=== PATIENT | male | born 1965 | race Caucasian/White ===

== ENCOUNTER → 2017-07-13 | Outpatient (CLI) | payer OTHER ==
--- NOTE | 2017-07-13 09:42 | MR ---
EXAMINATION TYPE: MR knee LT wo con DATE OF EXAM: 07/13/2017 COMPARISON: NONE HISTORY: Left knee pain TECHNIQUE: Multiplanar, multisequence imaging of the left knee is performed without IV contrast. FINDINGS: MEDIAL MENISCUS: Anterior and posterior horns are intact without tear. LATERAL MENISCUS: Anterior and posterior horns are intact without tear. CRUCIATE LIGAMENTS: Anterior cruciate ligament is intact. The posterior cruciate ligament appears to be thickened with a large area of intrinsic abnormal signal compatible with partial chronic tear. COLLATERAL LIGAMENTS: The medial collateral ligament and lateral collateral ligament complex are inta ct and unremarkable. EXTENSOR MECHANISM: Visualized quadriceps and patellar tendons are intact. EFFUSION: There is a moderate-sized suprapatellar bursal fluid collection. There is be a linear band of low signal extending through the collection which may represent plica syndrome. POPLITEAL CYST: There is a multiseptated cystic mass in the posterior margin of the knee joint in th e popliteal fossa measuring approximately 1.7 x 2 x 3.6 cm TRICOMPARTMENT SPACES: Mild narrowing of the medial compartment of the knee joint. Grade II chondroma lacia of the patellar cartilage noted. There also appears to be grade II chondromalacia involving the lateral tibial articular cartilage. BONE MARROW SIGNAL: No focal abnormal marrow signal is appreciated. IMPRESSION: 1. Marked thickening and abnormal increased signal within the intrasubstance portion of the PCL princess tible with chronic partial tear. ACL intact. 2. Multiseptated popliteal fossa cyst measuring 1.7 x 2 x 3.6 cm 3. Mild osteoarthritis medial compartment knee joint with findings and compatible with grade II chond romalacia involving the tricompartment space as discussed above. #4 there is a signal within the post erior horn medial meniscus along its periphery felt to be most typical of myxoid degeneration. Subtle linear tear suspected. 4. Moderate-sized suprapatellar bursal fluid with a linear band of low signal which may represent pli ca syndrome. Correlate clinically.
== END | disposition home or self-care (01) ==
LOC: RADMRIMAIN 08:44
PROVIDERS: ATTEND Pediatrics
DX: M17.12 Unilateral primary osteoarthritis, left knee (principal); M71.22 Synovial cyst of popliteal space [Baker], left knee; R93.7 Abnormal findings on diagnostic imaging of other parts of musculoskeletal system

== ENCOUNTER → 2018-12-26 | Outpatient (CLI) | payer OTHER | END | disposition home or self-care (01) | LOC: RADUSWWP 12:21 | PROVIDERS: ATTEND Family Medicine | DX: M79.604 Pain in right leg (principal) | CPT/HCPCS: 93923 ==

== ENCOUNTER → 2019-01-02 | Outpatient (CLI) | payer OTHER ==
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
== END | disposition home or self-care (01) ==
LOC: RADMRIMAIN 15:47
PROVIDERS: ATTEND Psychiatry & Neurology Neurology
DX: M48.061 Spinal stenosis, lumbar region without neurogenic claudication (principal); M51.26 Other intervertebral disc displacement, lumbar region; M51.27 Other intervertebral disc displacement, lumbosacral region; M51.36 Other intervertebral disc degeneration, lumbar region; M46.96 Unspecified inflammatory spondylopathy, lumbar region; M24.28 Disorder of ligament, vertebrae
CPT/HCPCS: 72148

== ENCOUNTER → 2020-03-13 | Outpatient (CLI) | payer OTHER ==
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
== END | disposition home or self-care (01) ==
LOC: RADCTMAIN 17:51
PROVIDERS: ATTEND Family Medicine
DX: G31.89 Other specified degenerative diseases of nervous system (principal); I67.82 Cerebral ischemia; I63.89 Other cerebral infarction
CPT/HCPCS: 70450

== ENCOUNTER → 2023-01-05 | Outpatient (CLI) | payer MEDICARE ==
--- NOTE | 2023-01-05 15:40 | XR ---
EXAMINATION TYPE: XR knee complete LT DATE OF EXAM: 01/05/2023 COMPARISON: 06/14/2013 HISTORY: Pain TECHNIQUE: Three views are submitted. FINDINGS: Joint spaces are preserved. Osseous structures are intact. No acute fracture seen. Vascular calcif ications noted. There is a moderate-sized suprapatellar bursal fluid collection. Mild osteopenia. IMPRESSION: 1. Moderate to large-sized suprapatellar bursal fluid collection. This occasionally be associated wit h internal derangement of knee. If there has been recent trauma consider MRI.
== END | disposition home or self-care (01) ==
LOC: RADXRYALE 15:25
PROVIDERS: ATTEND Physician Assistant
DX: M25.562 Pain in left knee (principal)

== ENCOUNTER → 2024-01-10 | Outpatient (CLI) | payer MEDICARE ==
--- NOTE | 2024-02-06 13:19 | US ---
Site ID [facility] Patient Martin Mazariegos J ID [id number] Age/Gender: 58Y, M Order # N/A Procedure US arterial LE single level Date 01/10/2024 9:58:00 AM EXAMINATION TYPE: US arterial LE single level DATE OF EXAM: 01/31/2024 1:38 AM CLINICAL INDICATION: Male, 58 year old with history of claudication History of: Smoker: Previous Hypertension: Yes Diabetic: No Hyperlipidemia: Yes TIA/CVA: NA Previous Vascular Surgery: Yes CAD: NA ND: Yes Vascular Ulcers: None Claudication: Both Gangrene: NA Doppler Waveforms: Right: Monophasic Left: Monophasic Right Brachial Pressure: 129 Left Brachial Pressure: 125 Ankle-Brachial Indices: Right: 0.47 Left: 0.28 (Vessel hardening > 1.4; Normal 0.9 - 1.4, Moderate 0.7 - 0.9, Severe 0.5-0.7) IMPRESSION: Severe bilateral peripheral arterial vascular disease.
== END | disposition home or self-care (01) ==
LOC: RADUSWWP 12:00
PROVIDERS: ATTEND Thoracic Surgery (Cardiothoracic Vascular Surgery)
DX: I73.9 Peripheral vascular disease, unspecified (principal)
CPT/HCPCS: 93922

== ENCOUNTER → 2024-04-29 | Day surgery (SDC) | payer MEDICARE ==
[2024-04-26 12:09] VITALS: BMI 24.3
[~2024-04-29] MED LIST: ALPRAZolam 0.25 MG TAB PO PRN; HEPARIN SODIUM,PORCINE (1 ML) 2,500 UNIT in SODIUM CHLORIDE 0.9% 250 ML IRRIGATION PRN; HEPARIN SODIUM,PORCINE 10,000 UNIT in SODIUM CHLORIDE 0.9% 1,000 ML IRRIGATION PRN; ZOLPIDEM 5 MG TAB PO PRN
[2024-04-29 07:06] VITALS: TEMP 98.1
[2024-04-29] MEDS: EMPTY BAG 1 BAG with SODIUM CHLORIDE 0.9% 1,000 ML IV SCH (07:09)
[2024-04-29] MEDS: IV FLUID CONTINUATION 1,000 ML IV ONE (07:10)
[2024-04-29 07:21] LABS: Basophils # (A) 0.1 k/uL (0-0.2); Basophils % (A) 1 %; Eosinophils # (A) 0.4 k/uL (0-0.7); Eosinophils % (A) 4 %; HCT 43.4 % (39.0-53.0); HGB 13.8 gm/dL (13.0-17.5); Lymphocytes # (A) 2.4 k/uL (1.0-4.8); Lymphocytes % (A) 26 %; MCH 30.3 pg (25.0-35.0); MCHC 31.7 g/dL (31.0-37.0); MCV 95.4 fL (80.0-100.0); Mean Platelet Volume 6.5; Monocytes # (A) 0.5 k/uL (0-1.0); Monocytes % (A) 5 %; Neutrophils # (A) 5.7 k/uL (1.3-7.7); Neutrophils % (A) 62 %; Platelet Count 408 k/uL (150-450); RBC 4.55 m/uL (4.30-5.90); RDW 13.9 % (11.5-15.5); WBC 9.1 k/uL (3.8-10.6)
[2024-04-29 07:39] LABS: African American GFR (CKD) >90 (>60 ml/min/1.73 sqM); Anion Gap 7 mmol/L; Blood Urea Nitrogen 21 mg/dL (9-20); Calcium 9.4 mg/dL (8.4-10.2); Carbon Dioxide 26 mmol/L (22-30); Chloride 106 mmol/L (98-107); Glucose 102 mg/dL (74-99); Non-African American GFR(CKD) >90 (>60 ml/min/1.73 sqM); Potassium 3.9 mmol/L (3.5-5.1); Sodium 139 mmol/L (137-145)
[2024-04-29] MEDS: MIDAZOLAM 2 MG/2 ML VIAL IVP ONE (09:20)
[2024-04-29] MEDS: fentaNYL (PF) 50 MCG/ML 2 ML AMP IVP ONE (09:20)
[2024-04-29] MEDS: LIDOCAINE 1% INJ 10MG/ML (20 ML MDV) SQ ONE ×2 (09:20→09:22)
[2024-04-29] MEDS: IOPAMIDOL-250 100ML BTL INTRAARTER ONE ×2 (09:43→09:44)
--- NOTE | 2024-04-29 10:07 | IR ---
EXAMINATION TYPE: IR angio abdominal w runoff DATE OF EXAM: 04/29/2024 COMPARISON: NONE CLINICAL INDICATION: Male, 58 years old with history of bilateral leg pain, 1.3 min fluoro, 33.5Gycm2 ; Fluoroscopy was provided to the referring clinician. [facility], , 04/29/2024 10:05 AM
--- NOTE | 2024-04-29 10:12 | P.OP ---
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 2: Severe lifestyle limiting claudication bordering on ischemic rest pain. Postoperative Diagnosis: Same +2.0 cm right common iliac artery aneurysm Procedure(s) Performed: 1: Ultrasound-guided cannulation right femoral artery. 2: Abdominal aortogram with bilateral pelvic, femoral, popliteal and tibial artery runoff. Implants: None. Anesthesia: MAC (50 mcg of fentanyl and 2 mg of Versed administered intravenously.), local (1% Xylocaine.) Surgeon: Migel Dewitt Estimated Blood Loss (ml): 10 Urine output (ml): 0 Pathology: none sent Condition: stable Disposition: no change Indications for Procedure: Patient is a 58-year-old male who had presented to the office complaining of severe lifestyle limiting claudication and occasionally ischemic rest pain symptoms of both feet. Physical examination demonstrated femoral pulses to be intact with a popliteal and pedal pulses to be absent. Arterial Doppler study was performed which demonstrated ABIs in the 0.35 range bilaterally. Because of his symptoms and other evaluation patient is offered angiography for further delineation of vascular anatomy and possible endovascular repair. The risk and benefits of the procedure were discussed with the patient. Patient wished to proceed. Consent form was signed. Operative Findings: Please see operative note. Description of Procedure: Patient was brought to the special procedure suite. Both groins were sterilely prepped and draped in usual manner. Patient did receive 50 mcg of fentanyl and 2 mg of Versed intravenously at the beginning of the procedure for moderate conscious sedation purposes. 1% Xylocaine was utilized for local anesthesia of the tissues overlying the right femoral artery. Through this anesthetized area and with the aid of ultrasound a multipurpose needle was utilized to cannulate the artery. Once cannulated soft tipped guidewire was advanced into the artery. The needle was withdrawn and a 5 Italian sheath was placed. 0.035 inch J-tip guidewire and pigtail catheter were advanced. The catheter was positioned at the L1-L2 interspace and the guidewire was withdrawn. Abdominal aortogram was performed. Subsequently the catheter was pulled down to the level of the aortic bifurcation subsequently pelvic, femoral, popliteal and tibial angiography was performed. Findings: Abdominal aortogram demonstrates single renal arteries bilaterally without evidence of significant occlusive disease. The infrarenal aorta was normally patent with no atherosclerotic change of significance noted. Left iliac angiography demonstrates the common iliac artery to be normally patent. The internal iliac was patent although diminutive in size. There is approximately a 40% stenosis of the external iliac artery. Left femoral angiography demonstrates calcific atherosclerotic disease of the common femoral artery. The profundus is patent. Superficial femoral artery is patent proximally and demonstrates significant calcific atherosclerotic change at the mid thigh level which leads to a complete occlusion. This occlusion extends through the distal portion of the superficial femoral artery down through the the popliteal artery in its entirety. Tibial angiography demonstrates single-vessel runoff via a normally patent peroneal artery. The anterior tibial and posterior tibial arteries never visualized. Right iliac artery angiography demonstrates a 2 cm somewhat calcified common iliac artery aneurysm. The remaining portion of the common iliac is unremarkable. The external iliac artery is normally patent. The common femoral artery is patent and the profundus is quite hypertrophied suggesting a longstanding occlusive disease of the lower extremity. The superficial femoral artery demonstrates a flush occlusion and is completely occluded through the femoral segment. The popliteal artery is patent in its mid and distal segments. Three-vessel runoff of all tibial vessels is demonstrated. The anterior posterior tibial arteries to cross the ankle mortise on to the foot. With the above findings noted the catheter and sheath were withdrawn and the puncture wound was closed with the aid of an Angio-Seal device. Patient tolerated the procedure well and was taken to the outpatient surgical area in satisfactory and stable condition. Total fluoroscopy time: 1.3 minutes. Total contrast volume utilized 113 cc of Isovue 270. Total moderate conscious sedation time: 19 minutes. Plan - Discharge Summary Discharge Rx Participant: Yes New Discharge Prescriptions: No Action Metoprolol Succinate (ER) [Toprol Xl] 12.5 mg PO DAILY oxyCODONE-APAP 10-325MG [Percocet 10-325 mg] 1 tab PO QID Gabapentin 300 mg PO TID Ferrous Sulfate [Iron] 325 mg PO BID Clopidogrel [Plavix] 75 mg PO DAILY Atorvastatin [Lipitor] 40 mg PO DAILY Aspirin [Adult Low Dose Aspirin EC] 81 mg PO DAILY Discharge Medication List Aspirin [Adult Low Dose Aspirin EC] 81 mg PO DAILY 04/26/24 [History] Atorvastatin [Lipitor] 40 mg PO DAILY 04/26/24 [History] Clopidogrel [Plavix] 75 mg PO DAILY 04/26/24 [History] Ferrous Sulfate [Iron] 325 mg PO BID 04/26/24 [History] Gabapentin 300 mg PO TID 04/26/24 [History] Metoprolol Succinate (ER) [Toprol Xl] 12.5 mg PO DAILY 04/26/24 [History] oxyCODONE-APAP 10-325MG [Percocet 10-325 mg] 1 tab PO QID 04/26/24 [History] Follow up Appointment(s)/Referral(s): Migel Dewitt DO [Doctor of Osteopathic Medicine] - 05/16/24 9:30 am (FOLLOW UP APPOINTMENT MADE.) Patient Instructions/Handouts: Angiography (DC)
[2024-04-29 18:32] VITALS: RESP 16
[2024-04-29 18:36] VITALS: BP 162/84; PULSE 74
== END ==
LOC: CATHCVL 06:48
PROVIDERS: ATTEND Surgery
DX: I73.9 Peripheral vascular disease, unspecified (principal); I72.3 Aneurysm of iliac artery; I25.10 Atherosclerotic heart disease of native coronary artery without angina pectoris; I10 Essential (primary) hypertension; F17.210 Nicotine dependence, cigarettes, uncomplicated; Z79.02 Long term (current) use of antithrombotics/antiplatelets; Z79.82 Long term (current) use of aspirin; Z79.899 Other long term (current) drug therapy
CPT/HCPCS: 36200; 75625; 75716; 80048; 85025; J2250; J2003; J3010; Q9966